=== PATIENT | female | born 1990 | race Caucasian/White ===

== ENCOUNTER → 2018-10-20 | Outpatient (CLI) | payer OTHER ==
[2018-10-20 11:32] LABS: BASO % 1 % (0-3); EOS # 0.2 x10^3/uL (0.0-0.7); EOS % 3 % (0-3); HEMATOCRIT 40.6 % (36.0-47.0); HEMOGLOBIN 13.5 g/dL (12.0-15.5); LYMPH % 26 % (24-48); MEAN CORPUSCULAR HEMOGLOBIN 29 pg (25-35); MEAN CORPUSCULAR HGB CONC 33 g/dL (31-37); MEAN CORPUSCULAR VOLUME 86 fL (79-100); MONO # 0.6 x10^3/uL (0.0-1.1); MONO % 7 % (0-9); NEUT # 4.7 x10^3uL (1.8-7.7); NEUT % 63 % (31-73); PLATELET COUNT 230 x10^3/uL (140-400); RED BLOOD COUNT 4.74 x10^6/uL (3.50-5.40); RED CELL DISTRIBUTION WIDTH 12.6 % (11.5-14.5); WHITE BLOOD COUNT 7.5 x10^3/uL (4.0-11.0)
[2018-10-20 11:53] LABS: ALBUMIN 4.2 g/dL (3.4-5.0); ALBUMIN/GLOBULIN RATIO 1.2 (1.0-1.7); CREATININE 0.7 mg/dL (0.6-1.0); GFR 98.9; POTASSIUM 4.3 mmol/L (3.5-5.1); TOTAL BILIRUBIN 0.5 mg/dL (0.2-1.0); TOTAL PROTEIN 7.6 g/dL (6.4-8.2)
== END | disposition home or self-care (01) ==
LOC: LAB 10:59
PROVIDERS: ATTEND Physician Assistant Medical
DX: Z00.00 Encounter for general adult medical examination without abnormal findings (principal); Q63.1 Lobulated, fused and horseshoe kidney
CPT/HCPCS: 36415; 80053; 85025

== ENCOUNTER → 2018-11-23 | Outpatient (CLI) | payer OTHER | END | disposition home or self-care (01) | LOC: LAB 10:54 | PROVIDERS: ATTEND Internal Medicine | DX: Z11.1 Encounter for screening for respiratory tuberculosis (principal) | CPT/HCPCS: 36415; 86481 ==

== ENCOUNTER → 2019-01-06 | Outpatient (CLI) | payer OTHER ==
[2018-12-20 11:56] VITALS: BP 129/77
--- NOTE | 2019-01-06 15:11 | RAD ---
EXAMINATION: Magnetic resonance imaging (MRI) of the cervical spine without contrast 01/06/2019 2:45 PM HISTORY: Neck pain with right-sided radiculopathy. History of fall 2 weeks ago. TECHNIQUE: Multiplanar multi-weighted MRI of the cervical spine was performed without intravenous contrast using the standard cervical spine protocol. Contrast information: None administered COMPARISON: None available. FINDINGS: The alignment of the cervical spine is normal. Vertebral bodies demonstrate normal signal intensity on all sequences. No acute fracture is identified; however, if trauma is suspected, a CT scan would be a more sensitive examination for fractures. The craniocervical junction is normal. The visualized portions of the skull base and the posterior fossa are normal. The spinal cord demonstrates normal signal intensity on all sequences. Intervertebral disks have normal height and signal intensity. There are no annular fissures identified. No soft tissue abnormality is identified. Normal signal voids are present in the vertebral arteries. Mucus retention cyst is identified in sphenoid sinus and maxillary sinus. Tarlov cyst is identified measuring 9 mm. C2-C3: The disk is normal in configuration. There is no facet arthropathy. There is no uncovertebral joint disease. There is no neuroforaminal stenosis. There is no spinal canal stenosis. C3-C4: The disk is normal in configuration. There is no facet arthropathy. There is no uncovertebral joint disease. There is no neuroforaminal stenosis. There is no spinal canal stenosis. C4-C5: The disk is normal in configuration. There is no facet arthropathy. There is no uncovertebral joint disease. There is no neuroforaminal stenosis. There is no spinal canal stenosis. C5-C6: The disk is normal in configuration. There is no facet arthropathy. There is no uncovertebral joint disease. There is no neuroforaminal stenosis. There is no spinal canal stenosis. C6-C7: Minimal disc bulge. There is no facet arthropathy. There is no uncovertebral joint disease. There is no neuroforaminal stenosis. There is no spinal canal stenosis. C7-T1: The disk is normal in configuration. There is no facet arthropathy. There is no uncovertebral joint disease. There is no neuroforaminal stenosis. There is no spinal canal stenosis. IMPRESSION: No significant disc herniation, neuroforaminal or spinal canal stenosis. Mucus retention cysts are identified in the sphenoid and maxillary sinuses. Electronically signed by: Geno Garcia MD (01/06/2019 3:08 PM) [id number]
== END | disposition home or self-care (01) ==
LOC: MRI 13:28
PROVIDERS: ATTEND Orthopaedic Surgery
DX: M54.12 Radiculopathy, cervical region (principal); J34.1 Cyst and mucocele of nose and nasal sinus
CPT/HCPCS: 72141

== ENCOUNTER → 2019-02-25 | Outpatient (CLI) | payer OTHER ==
[2018-12-20 11:56] VITALS: BP 129/77
[~2019-02-25] MED LIST: BARIUM SULFATE 40% (APPLE) 148 GM PWD. PO ONE
--- NOTE | 2019-02-25 13:32 | RAD ---
Indication: Dysphagia. TECHNIQUE: Fluoroscopy-guided video swallow study with total fluoroscopy time of 1.1 minutes. COMPARISON: None FINDINGS: Thin liquid, Pudding, mixed solid and liquid and solid food consistencies were tested. Pills were tested. No Aspiration or penetration. IMPRESSION: No aspiration or penetration. Please see detailed notes by speech pathologist in patient's chart for full information. Electronically signed by: Roddy Benedict DO (02/25/2019 1:29 PM) [facility]
== END | disposition home or self-care (01) ==
LOC: RAD 12:25
PROVIDERS: ATTEND Family Medicine
DX: R13.10 Dysphagia, unspecified (principal)
CPT/HCPCS: 74230; 92526; 92611

== ENCOUNTER → 2019-03-24 | Outpatient (CLI) | payer OTHER ==
[2018-12-20 11:56] VITALS: BP 129/77
[2019-03-25 18:09] LABS: GC PROBE Negative (Negative)
== END | disposition home or self-care (01) ==
LOC: LAB 16:39
PROVIDERS: ATTEND Family Medicine
DX: Z11.3 Encounter for screening for infections with a predominantly sexual mode of transmission (principal); Z01.419 Encounter for gynecological examination (general) (routine) without abnormal findings
CPT/HCPCS: 36415; 86592; 86703; 86803; 87480; 87491; 87510; 87591; 87623; 87660; 88175

== ENCOUNTER 2019-04-23 17:09 | Emergency (ER) | payer OTHER ==
[~2019-04-23] VITALS: Ht 162.6 cm; Wt 68.5 kg
[2019-04-23 17:27] VITALS: BP 128/90
--- NOTE | 2019-04-23 17:36 | PHYS DOC ---
Past Medical History Past Medical History: Anxiety, Depression, Other Additional Past Medical Histor: BENIGN BREAST TUMOR, CKD (PACO MELENDEZ APRN) Past Surgical History: Tonsillectomy, Other Additional Past Surgical Histo: PYELOPLASTY (PACO MELENDEZ APRN) Alcohol Use: Occasionally Drug Use: None (PACO MELENDEZ APRN) Adult General Chief Complaint Chief Complaint: HEADACHE HPI HPI Patient is a 28 year old female that presents with a headache this been ongoing for 4 days along with nausea, runny nose, congestion, and cough. The patient is having Tylenol and decongestant at home. She states this is only helped a little bit. The patient also states that she feels the room is spinning and feels dizziness. Is also had some right ear pain. She rates her pain as 6 out of 10 in severity. (PACO MELENDEZ APRN) Review of Systems Review of Systems Constitutional: Denies fever or chills [] Eyes: Denies change in visual acuity, redness, or eye pain [] HENT: Reports nasal congestion and sore throat [] Respiratory: Reports cough Cardiovascular: No additional information not addressed in HPI [] GI: Reports nausea, Denies abdominal pain, vomiting, bloody stools or diarrhea [] : Denies dysuria or hematuria [] Musculoskeletal: Denies back pain or joint pain [] Integument: Denies rash or skin lesions [] Neurologic: Reports headache, focal weakness or sensory changes [] Endocrine: Denies polyuria or polydipsia [] Complete systems were reviewed and found to be within normal limits, except as documented in this note. (PACO MELENDEZ APRN) Current Medications Current Medications Current Medications Medications (Trade) Dose Ordered Sig/Rowan Start Time Stop Time Status Last Admin Dose Admin Acetaminophen (Tylenol) 500 mg 1X STAT 04/23/19 17:37 04/23/19 17:39 DC 04/23/19 17:42 500 MG Dexamethasone (Decadron) 10 mg 1X STAT 04/23/19 17:37 04/23/19 17:39 DC 04/23/19 17:42 10 MG Meclizine HCl (Antivert) 25 mg 1X ONCE 04/23/19 17:45 04/23/19 17:46 DC 04/23/19 17:42 25 MG (THIERNO MONACO MD) Allergies Allergies Allergies Coded Allergies Type Severity Reaction Last Updated Verified No Known Drug Allergies 12/20/18 No (THIERNO MONACO MD) Physical Exam Physical Exam Constitutional: Well developed, well nourished, no acute distress, non-toxic appearance. [] HENT: Normocephalic, atraumatic, bilateral external ears normal, oropharynx moist, no oral exudates, nose normal. [] Eyes: PERRLA, EOMI, conjunctiva normal, no discharge. [] Neck: Normal range of motion, no tenderness, supple, no stridor. [] Cardiovascular:Heart rate regular rhythm, no murmur [] Lungs & Thorax: Bilateral breath sounds clear to auscultation [] Abdomen: Bowel sounds normal, soft, no tenderness, no masses, no pulsatile masses. [] Skin: Warm, dry, no erythema, no rash. [] Back: No tenderness, no CVA tenderness. [] Extremities: No tenderness, no cyanosis, no clubbing, ROM intact, no edema. [] Neurologic: Alert and oriented X 3, normal motor function, normal sensory function, no focal deficits noted. [] Psychologic: Affect normal, judgement normal, mood normal. [] (PACO MELENDEZ APRN) Current Patient Data Vital Signs Vital Signs Date Time Temp Pulse Resp B/P (MAP) Pulse Ox O2 Delivery O2 Flow Rate FiO2 04/23/19 17:27 98.5 85 16 128/90 (103) 99 Room Air 98.5 (THIERNO MONACO MD) EKG EKG [] (PACO MELENDEZ APRN) Radiology/Procedures Radiology/Procedures [] (PACO MELENDEZ APRN) Course & Med Decision Making Course & Med Decision Making Pertinent Labs and Imaging studies reviewed. (See chart for details) Will have nursing give graduated Cylinder of water. Patient does not want IV. Will give Meclizine and Dexamethasone in ER along with Tylenol. Patient feels better after treatment. Will d/c home. (PACO MELENDEZ APRN) Course & Med Decision Making I was not involved in the care of this patient after 1800 on 04/23/19. (THIERNO MONACO MD) Dragon Disclaimer Dragon Disclaimer This electronic medical record was generated, in whole or in part, using a voice recognition dictation system. (PACO MELENDEZ APRN) Departure Departure Impression: Primary Impression: Vertigo Additional Impression: Upper respiratory infection Disposition: 01 HOME, SELF-CARE Condition: STABLE Referrals: SARY MCNEILL MD (PCP) Patient Instructions: Upper Respiratory Infection, Adult, Vertigo Additional Instructions: Thank you for visiting [facility]. We appreciate you trusting us with your care. If any additional problems come up don't hesitate to return to visit us. Please follow up with your primary care provider so they can plan additional care if needed and know about the problem that you had. If symptoms worsen come back to the Emergency Department. Any concerning symptoms that start such as chest pain, shortness of air, weakness or numbness on one side of the body, running high fevers or any other concerning symptoms return to the ER. Please use Zyrtec, and Mucinex per label instructions. Please use Afrin for Nasal congestion (no more than 3 days), follow label instructions. Scripts Ondansetron (ONDANSETRON ODT) 4 Mg Tab.rapdis 1 TAB PO PRN Q6-8HRS, #16 TAB Prov: PACO MELENDEZ APRN 04/23/19 Meclizine Hcl (MECLIZINE HCL) 25 Mg Tablet 1 TAB PO TID PRN for DIZZINESS, #30 TAB Prov: PACO MELENDEZ APRN 04/23/19 Problem Qualifiers Additional Impression: Upper respiratory infection URI type: unspecified URI Qualified Codes: J06.9 - Acute upper respiratory infection, unspecified PACO MELENDEZ APRN Apr 23, 2019 17:36 THIERNO MONACO MD Apr 24, 2019 18:18
[2019-04-23] MEDS ORDERED: ACETAMINOPHEN 500 MG TABLET PO STA (17:37)
[2019-04-23] MEDS ORDERED: DEXAMETHASONE 4 MG TABLET PO STA (17:37)
[2019-04-23] MEDS ORDERED: MECLIZINE HCL 12.5 MG TABLET. PO ONE (17:45)
[2019-04-23] MEDS ORDERED: ONDA4TAB12 PO (18:54)
[2019-04-23] MEDS ORDERED: MECL25TA3 PO (18:54)
== END 2019-04-23 19:03 | disposition home or self-care (01) ==
LOC: ER 17:09
DX: R42 Dizziness and giddiness (principal); J06.9 Acute upper respiratory infection, unspecified; H92.01 Otalgia, right ear; R53.1 Weakness; F41.9 Anxiety disorder, unspecified; F32.9 Major depressive disorder, single episode, unspecified; Z90.89 Acquired absence of other organs; N18.9 Chronic kidney disease, unspecified
CPT/HCPCS: 99284; J8540; J8597

== ENCOUNTER → 2019-06-18 | Outpatient (CLI) | payer OTHER ==
[~2019-06-18] MED LIST changes: +0.9 % SODIUM CHLORIDE 10 ML DISP.SYRIN. ID ONE; -BARIUM SULFATE 40% (APPLE) 148 GM PWD. PO ONE; +CONTRAST GIVEN. MC PRN; +GADOTERATE 5 MMOL/10ML VIAL. INT ART ONE; +IOHEXOL 300 MG/ML 50 ML VIAL. INT ART ONE; +LIDOCAINE 1% Multi-Dose 20 ML VIAL. ID ONE; +MECL25TA3 PO; +ONDA4TAB12 PO
--- NOTE | 2019-06-18 16:56 | KCIC ---
MRI arthrogram of the left elbow HISTORY: Ulnar collateral ligament sprain. Patient fell. Physical therapy for 6 weeks. Pain and lifting. TECHNIQUE: Routine multiplanar sequences are obtained after intra-articular contrast injection. FINDINGS: Biceps and brachialis tendons are intact. The triceps tendon is intact. Common flexor tendon and ulnar collateral ligament are intact. Common extensor tendon, and lateral collateral ligament complex, are intact. No acute fracture, marrow edema or aggressive bone destruction. The ulnar nerve appears unremarkable. IMPRESSION: No evidence of acute abnormality or internal derangement. Electronically signed by: Neo Mclaughlin MD (06/18/2019 4:53 PM) [facility]
--- NOTE | 2019-06-18 17:29 | KCIC ---
ELBOW ARTHROGRAM RIGHT History: Ulnar collateral ligament sprain. Elbow pain. PROCEDURE: The risks, alternatives, benefits of the procedure discussed with the patient. Written informed consent is obtained. A timeout is performed. Skin site was chosen under fluoroscopy. This area is prepped and draped in normal sterile fashion. 1% Lidocaine is used for superficial and deep local anesthesia. Using intermittent fluoroscopy, a 22-gauge needle is advanced into the joint space. Position is confirmed with a small amount contrast injection. Then a dilute gadolinium solution is instilled, total volume approximately 6 mL. The needle was removed. Hemostasis is achieved. The patient tolerated the procedure well. There is no immediate complication. Patient was transferred to MRI. Total fluoroscopy time 22 seconds seconds. 1 fluoroscopic spot images. IMPRESSION: 1. Fluoroscopically guided right elbow arthrogram prior to MRI. Electronically signed by: Travis Chaparro DO (06/18/2019 5:27 PM) [id number]
== END | disposition home or self-care (01) ==
LOC: KCIC 13:40
PROVIDERS: ATTEND Orthopaedic Surgery
DX: S53.441D Ulnar collateral ligament sprain of right elbow, subsequent encounter (principal); X58.XXXD Exposure to other specified factors, subsequent encounter
CPT/HCPCS: 73085; 73222; A9575; Q9967

== ENCOUNTER → 2019-10-27 | Outpatient (CLI) | payer OTHER ==
[~2019-10-27] MED LIST changes: -0.9 % SODIUM CHLORIDE 10 ML DISP.SYRIN. ID ONE; -CONTRAST GIVEN. MC PRN; -GADOTERATE 5 MMOL/10ML VIAL. INT ART ONE; -IOHEXOL 300 MG/ML 50 ML VIAL. INT ART ONE; -LIDOCAINE 1% Multi-Dose 20 ML VIAL. ID ONE; +MECL-75 PO; -MECL25TA3 PO
[2019-10-27 09:50] LABS: ALBUMIN 4.1 g/dL (3.4-5.0); ALBUMIN/GLOBULIN RATIO 1.3 (1.0-1.7); CHOLESTEROL/HDL RATIO 2.5; CREATININE 0.7 mg/dL (0.6-1.0); GFR 98.3; TOTAL BILIRUBIN 0.6 mg/dL (0.2-1.0); TOTAL PROTEIN 7.3 g/dL (6.4-8.2)
== END | disposition home or self-care (01) ==
LOC: LAB 08:55
PROVIDERS: ATTEND Family Medicine
DX: Q63.1 Lobulated, fused and horseshoe kidney (principal)
CPT/HCPCS: 36415; 80053; 80061

== ENCOUNTER → 2019-11-30 | Outpatient (CLI) | payer OTHER ==
[2019-11-30 17:05] LABS: BASO # 0.1 x10^3/uL (0.0-0.2); BASO % 1 % (0-3); EOS # 0.2 x10^3/uL (0.0-0.7); EOS % 3 % (0-3); HEMATOCRIT 40.7 % (36.0-47.0); HEMOGLOBIN 13.8 g/dL (12.0-15.5); LYMPH # 2.1 x10^3/uL (1.0-4.8); LYMPH % 24 % (24-48); MEAN CORPUSCULAR HEMOGLOBIN 29 pg (25-35); MEAN CORPUSCULAR HGB CONC 34 g/dL (31-37); MEAN CORPUSCULAR VOLUME 87 fL (79-100); MONO # 0.5 x10^3/uL (0.0-1.1); MONO % 6 % (0-9); NEUT # 5.9 x10^3/uL (1.8-7.7); NEUT % 67 % (31-73); PLATELET COUNT 232 x10^3/uL (140-400); RED BLOOD COUNT 4.71 x10^6/uL (3.50-5.40); RED CELL DISTRIBUTION WIDTH 12.5 % (11.5-14.5); WHITE BLOOD COUNT 8.8 x10^3/uL (4.0-11.0)
[2019-11-30 17:25] LABS: ALBUMIN 4.3 g/dL (3.4-5.0); ALBUMIN/GLOBULIN RATIO 1.4 (1.0-1.7); CALCIUM 8.6 mg/dL (8.5-10.1); CREATININE 0.8 mg/dL (0.6-1.0); GFR 84.2; POTASSIUM 3.9 mmol/L (3.5-5.1); TOTAL BILIRUBIN 0.3 mg/dL (0.2-1.0); TOTAL PROTEIN 7.4 g/dL (6.4-8.2)
== END | disposition home or self-care (01) ==
LOC: LAB 16:44
PROVIDERS: ATTEND Family Medicine
DX: R30.0 Dysuria (principal); R10.9 Unspecified abdominal pain; R35.0 Frequency of micturition; Q63.1 Lobulated, fused and horseshoe kidney
CPT/HCPCS: 36415; 80053; 85025; 87086

== ENCOUNTER → 2019-12-02 | Outpatient (CLI) | payer OTHER ==
--- NOTE | 2019-12-02 15:35 | RAD ---
CT of the abdomen and pelvis without contrast. 12/02/2019 3:00 PM Indication: Reason: R FLANK PAIN / Spl. Instructions: / History: Comparison Study: None. Technique: Multidetector CT imaging of the abdomen pelvis is obtained without administration of contrast. Findings: The visualized bilateral lung bases are clear. Horseshoe configuration of the kidneys noted. No hydronephrosis is identified. Punctate calcification seen in the superior aspect of the left renal moiety, nonobstructive. A definitive ureteral stone is identified. Bladder is grossly unremarkable. The liver, spleen, bilateral adrenal glands, gallbladder, and pancreas have a grossly unremarkable noncontrast enhanced appearance. There is no significant free fluid or free air in the abdomen or pelvis. There is no evidence of bowel obstruction or significant inflamatory change. No evidence of appendicitis is seen no acute osseous changes are seen. Impression: 1. Horseshoe kidney. Nonobstructing nephrolithiasis in the superior aspect of the left renal moiety without evidence of ureteral stone or acute obstructive uropathy. 2. No other acute intra-abdominal abnormality is identified. CT DOSING PQRS STATEMENT: One or more of the following individualized dose reduction techniques were utilized for this examination: 1. Automated exposure control 2. Adjustment of the mA and/or kV according to patient size 3. Use of iterative reconstruction technique Electronically signed by: Dayday Parikh MD (12/02/2019 3:33 PM) [id number]
== END | disposition home or self-care (01) ==
LOC: CT 14:36
PROVIDERS: ATTEND Family Medicine
DX: N20.0 Calculus of kidney (principal); Q63.1 Lobulated, fused and horseshoe kidney
CPT/HCPCS: 74176